=== PATIENT | male | born 1980 | race Caucasian/White ===

== ENCOUNTER 2019-02-10 07:38 | Emergency (ER) | payer OTHER ==
--- NOTE | 2019-02-10 08:03 | ER Document Report ---
ED General - General Chief Complaint: Head Injury with LOC Stated Complaint: HEAD INJURY Time Seen by Provider: 02/10/19 07:53 Primary Care Provider: THEA GAMEZ [NO LOCAL MD] - Follow up as needed Notes: 38-year-old male with history of traumatic brain injury presents with yet another mild brain injury. Complains of dizziness and difficulty with his equilibrium for about 2 hours since hitting his head and lateral box he was going from crouching to standing. No LOC. Small abrasion. Tetanus up-to-date. No neurologic signs other than that this happened before during brain injury for him, and he smokes marijuana. TRAVEL OUTSIDE OF THE [place] IN LAST 30 DAYS: No - Related Data Allergies/Adverse Reactions: No Known Allergies Allergy (Verified 02/10/19 07:39) Past Medical History - Social History Smoking Status: Former Smoker Family History: None Review of Systems - Review of Systems Notes: REVIEW OF SYSTEMS GEN: Denies fever, chills, weight loss ENT: Denies sore throat, nasal discharge, ear pain EYES: Denies blurry vision, eye pain, discharge CV: Denies chest pain, palpitations, edema RESP: Denies cough, shortness of breath, wheezing GI: Denies abdominal pain, nausea, vomiting, diarrhea MSK: Denies joint pain/swelling, edema, SKIN: Denies rash, skin lesions LYMPH: Denies swollen glands/lymph nodes NEURO: Denies headache, focal weakness or numbness PSYCH: Denies depression, suicidal or homicidal ideation PHYSICAL EXAMINATION General: No acute distress, well-nourished Head: 1 sonometer right vertex scalp abrasion, normocephalic ENT: Mouth normal, oropharynx moist, no exudates or tonsillar enlargement Eyes: Conjunctiva normal, pupils equal, lids normal Neck: No JVD, supple, no guarding CVS: Normal rate, regular rhythm, no murmurs Resp: No resp distress, equal and normal breath sounds bilaterally GI: Nondistended, soft, no tenderness to palpation, no rebound or guarding Ext: No deformities, no edema, normal range of motion in upper and lower ext Back: No CVA or midline TTP Skin: No rash, warm Lymphatic: No lymphadeopathy noted Neuro: Awake, alert. Face symmetric. GCS 15. Normal gait normal tandem gait no signs of ataxia. Physical Exam - Vital signs Vitals: Temp Pulse Resp BP Pulse Ox 97.7 F 81 16 123/76 96 02/10/19 07:44 02/10/19 07:44 02/10/19 07:44 02/10/19 07:44 02/10/19 07:44 Course - Re-evaluation Re-evalutation: 02/10/19 09:23 Repeat episode of migraine injury, mild with no LOC. Abrasion but no laceration. Tetanus up-to-date. Mental status normal, normal gait. CT shows old TBI nothing new. Patient feels well and is discharged home with follow-up with primary care. Advised against marijuana, which he abuses regularly. I have discussed with the patient there likely diagnosis, aftercare plan, follow- up plans and my usual and customary return precautions. They verbalized understanding of this. - Vital Signs Vital signs: Temp Pulse Resp BP Pulse Ox 97.7 F 81 16 123/76 96 02/10/19 07:44 02/10/19 07:44 02/10/19 07:44 02/10/19 07:44 02/10/19 07:44 - Diagnostic Test Radiology reviewed: Image reviewed, Reports reviewed Discharge - Discharge Clinical Impression: Mild concussion Qualifiers: Encounter type: initial encounter Loss of consciousness presence/duration: without LOC Qualified Code(s): S06.0X0A - Concussion without loss of consciousness, initial encounter Condition: Good Disposition: HOME, SELF-CARE Instructions: Concussion ([facility]) Referrals: LOCALMD,NO [NO LOCAL MD] - Follow up as needed
--- NOTE | 2019-02-10 09:10 | RADIOLOGY REPORT (SQ) ---
EXAM DESCRIPTION: CT HEAD WITHOUT COMPLETED DATE/TIME: 02/10/2019 8:50 am REASON FOR STUDY: Concussion with LOC history of TBI COMPARISON: None. TECHNIQUE: Axial images acquired through the brain without intravenous contrast. Images reviewed wi th bone, brain and subdural windows. Additional sagittal and coronal reconstructions were generated. Images stored on PACS. All CT scanners at this facility use dose modulation, iterative reconstruction, and/or weight based d osing when appropriate to reduce radiation dose to as low as reasonably achievable (ALARA). [facility]: Dose Right [facility]: CareDose [facility]: Dose Right [facility]: Teradose 4D [facility]: Eataly Net RADIATION DOSE: CT Rad equipment meets quality standard of care and radiation dose reduction techniq ues were employed. CTDIvol: 53.2 mGy. DLP: 1044 mGy-cm. mGy. LIMITATIONS: None. FINDINGS: VENTRICLES: Normal size and contour. CEREBRUM: There is bilateral inferior frontal lobe encephalomalacia from old closed head injury, best shown on axial image 16, sagittal images 26-31, and coronal images [address] evidence of acute large territory ischemic change, acute intracranial hemorrhage, mass effect, or midline shift. Normal robison/white matter differentiation. No areas of low density in the white matter. CEREBELLUM: No masses. No hemorrhage. No alteration of density. No evidence for acute infarction. EXTRAAXIAL SPACES: No fluid collections. No masses. ORBITS AND GLOBE: No intra- or extraconal masses. Normal contour of globe without masses. CALVARIUM: No fracture. PARANASAL SINUSES: No fluid or mucosal thickening. SOFT TISSUES: No mass or hematoma. OTHER: No other significant finding. 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 No acute findings today. Results called to Dr. Aguilar in the emergency room EVIDENCE OF ACUTE STROKE: NO. COMMENT: Quality ID # [id number]: Final reports with documentation of one or more dose reduction techniques (e.g., Automated exposure control, adjustment of the mA and/or kV according to patient size, use of iterative reconstruction technique) TECHNICAL DOCUMENTATION: JOB ID: [id number] [employer]- All Rights Reserved Reading location - IP/workstation name: [email or web address]
[2019-02-10 09:25] VITALS: BP 104/72
== END 2019-02-10 09:25 | disposition home or self-care (01) ==
LOC: ER 07:38
DX: S06.0X0A Concussion without loss of consciousness, initial encounter (principal); S00.01XA Abrasion of scalp, initial encounter; W22.09XA Striking against other stationary object, initial encounter
CPT/HCPCS: 70450; 99283

== ENCOUNTER 2019-08-24 17:53 | Emergency (ER) | payer SELFPAY ==
[2019-08-24 17:57] VITALS: BP 130/77
[2019-08-24] MEDS ORDERED: OXYCODONE-ACETAMINOPHEN 5-325 MG TABLET PO ONE (18:08)
--- NOTE | 2019-08-24 18:10 | ER Document Report ---
HPI - HPI Patient complains to provider of: Left-sided rib pain Time Seen by Provider: 08/24/19 18:04 Onset: This morning Onset/Duration: Sudden, Persistent Severity: Severe Context: 39-year-old male presents emergency department with complaints of left-sided rib pain. Reports he was up on a ladder and the ladder fell down and he landed on his ribs on the end of the ladder. No change in LOC. Reports he put a brace on hoping that would help the pain and he also took ibuprofen without relief of symptoms. Patient reports pain with deep breath. Associated Symptoms: None Exacerbated by: Deep breathing Relieved by: Denies Similar symptoms previously: No Recently seen / treated by doctor: No Past Medical History - General Information source: Patient - Social History Smoking Status: Unknown if Ever Smoked Frequency of alcohol use: None Drug Abuse: None Lives with: Family Family History: None Patient has suicidal ideation: No Patient has homicidal ideation: No - Medical History Medical History: Negative Renal/ Medical History: Denies: Hx Peritoneal Dialysis Surgical Hx: Negative Vertical Provider Document - CONSTITUTIONAL Agree With Documented VS: Yes Exam Limitations: No Limitations General Appearance: WD/WN, Mild Distress - INFECTION CONTROL TRAVEL OUTSIDE OF THE [place] IN LAST 30 DAYS: No - HEENT HEENT: Atraumatic - NECK Neck: Normal Inspection, Supple - RESPIRATORY Respiratory: No Respiratory Distress, Other - Left anterior chest wall tender to palpate no ecchymosis no swelling - CARDIOVASCULAR Cardiovascular: Regular Rate, Regular Rhythm - GI/ABDOMEN Gastrointestinal: Abdomen Soft, Abdomen Non-Tender - BACK Back: Normal Inspection - MUSCULOSKELETAL/EXTREMETIES Musculoskeletal/Extremeties: MAEW, FROM, Non-Tender - NEURO Level of Consciousness: Awake, Alert, Appropriate Motor/Sensory: No Motor Deficit Course - Re-evaluation Re-evalutation: 08/24/19 18:47 39-year-old male presents emergency department left-sided rib pain after he fell at her landing on his ribs. Reports he took ibuprofen without relief of pain. Percocet ordered and x-ray. Ribs w/Chest X-Ray 08/24/19 18:07 IMPRESSION: NO PNEUMOTHORAX. Probable nondisplaced left 6th anterior - lateral rib fracture.. Nondisplaced left fifth anterior lateral rib fracture noted. Patient will be discharged home with instructions pain medication. - Vital Signs Vital signs: Temp Pulse Resp BP Pulse Ox 98.9 F 85 130/77 H 99 08/24/19 17:57 08/24/19 17:57 08/24/19 17:57 08/24/19 17:57 Discharge - Discharge Clinical Impression: Rib injury, left lateral 6th rib fracture Condition: Stable Disposition: HOME, SELF-CARE Instructions: Oral Narcotic Medication ([facility]), Rib Injuries and Fractures ([facility]) Additional Instructions: *You have been evaluated for rib injury, fracture of the sixth rib *Take medication as prescribed Cough and deep breathe at least once an hour. *Follow up with a primary care provider within 1 week for recheck *Return to ED for worsening condition, changes, needs, difficulty breathing shortness of breath concerns Monitor your blood pressure. Your blood pressure was elevated today. This may be because you were anxious, in pain or because you need medication. It is important to follow up with your primary care provider for full evaluation. Prescriptions: Oxycodone HCl/Acetaminophen [Percocet 5-325 mg Tablet] 1 tab PO ASDIR PRN #15 tablet PRN Reason: Forms: Elevated Blood Pressure, Return to Work
--- NOTE | 2019-08-24 18:38 | RADIOLOGY REPORT (SQ) ---
EXAM DESCRIPTION: RIBS LEFT W/PA CHEST COMPLETED DATE/TIME: 08/24/2019 6:21 pm REASON FOR STUDY: fall hurts to deep breathe COMPARISON: None. TECHNIQUE: Frontal view of the chest and additional views of the left ribs acquired. NUMBER OF VIEWS: Four view. LIMITATIONS: None. FINDINGS: FRONTAL CXR: No pneumothorax. No pleural effusion. No atelectasis or infiltrates. RIBS: Probable nondisplaced left 6th anterior - lateral rib fracture. No other fracture identified. OTHER: No other significant finding. IMPRESSION: NO PNEUMOTHORAX. Probable nondisplaced left 6th anterior - lateral rib fracture.. COMMENT: SITE OF TRAUMA/COMPLAINT MARKED/STAMP COMPLETED: NO. TECHNICAL DOCUMENTATION: JOB ID: [id number] [place]-72 2010 [employer] All Rights Reserved Reading location - IP/workstation name: [email or web address]
== END 2019-08-24 18:53 | disposition home or self-care (01) ==
LOC: ER 17:53
DX: S22.32XA Fracture of one rib, left side, initial encounter for closed fracture (principal); R07.81 Pleurodynia; W11.XXXA Fall on and from ladder, initial encounter
CPT/HCPCS: 99283

== ENCOUNTER 2020-05-27 07:25 | Emergency (ER) | payer SELFPAY ==
[2020-05-27 07:30] VITALS: BP 131/88
== END 2020-05-27 11:30 | disposition left against medical advice (07) ==
LOC: ER 07:25
DX: Z53.21 Procedure and treatment not carried out due to patient leaving prior to being seen by health care provider (principal)